=== PATIENT | male | born 1960 | race Caucasian/White ===

== ENCOUNTER → 2024-11-23 07:53 | Outpatient (REF) | payer OTHER, SELFPAY ==
[2024-11-23 12:41] LABS: ALT (SGPT) 31 U/L (0-50); AST (SGOT) 28 U/L (17-59); Albumin 4.9 g/dl (3.5-5.0); Alkaline Phosphatase 72 U/L (38-126); Blood Urea Nitrogen 13 mg/dl (9-20); Calcium 9.8 mg/dl (8.4-10.2); Carbon Dioxide 29 mmol/L (22-30); Chloride 103 mmol/L (98-107); Glucose 116 mg/dl (70-99); HDL Cholesterol 52 mg/dl; LDL Cholesterol, Calculated 108 mg/dl; Potassium 5.1 mmol/L (3.5-5.1); Sodium 142 mmol/L (135-145); Total Bilirubin 0.8 mg/dl (0.2-1.3); Total Cholesterol 197 mg/dl (50-199); Total Protein 7.8 g/dl (6.3-8.2); Triglyceride 188 mg/dl (10-149); Very Low Density Lipoprotein 37 mg/dl (0-30); eGFR > 60.00
[2024-11-23 12:42] LABS: % Basophils 0.8 % (0-2); % Eosinophils 3.1 % (0-6); % Immature Granulocytes 0.5 % (0-0.5); % Lymphocytes 20.8 % (20.5-51.1); % Monocytes 7.9 % (1.7-9.3); % Neutrophils 66.9 % (42.2-75.2); Absolute Basophils 0.1 10^3/uL (0-0.2); Absolute Eosinophils 0.2 10^3/uL (0-0.7); Absolute Lymphocytes 1.3 10^3/uL (1.2-3.4); Absolute Monocytes 0.5 10^3/uL (0.1-0.6); Absolute Neutrophils 4.1 10^3/uL (1.4-6.5); Hematocrit 45.2 % (39.0-52.0); Mean Corp Hgb Conc. 33.2 g/dL (33.0-37.0); Mean Corpuscular Hgb 29.2 pg (27.0-31.0); Mean Corpuscular Volume 87.9 fL (80.0-94.0); Mean Platelet Volume 8.7 fL (7.4-10.4); Nucleated Red Blood Cells % 0 % (-); Platelet Count 359 10^3/uL (130-400); Red Blood Cell Count 5.14 10^6/uL (4.70-6.10); Red Cell Dist. Width 13.1 % (11.5-14.5); White Blood Cell Count 6.1 10^3/uL (4.8-10.8)
[2024-11-23 13:13] LABS: PSA, Total - Screen 2.03 ng/ml (0.0-4.0); TSH Reflex To Free T4 3.08 uIU/ml (0.47-4.68)
== END ==
LOC: HWLAB 07:53
PROVIDERS: ATTENDING PHYSICIAN Nurse Practitioner Adult Health
DX: Z00.00 Encounter for general adult medical examination without abnormal findings (principal); Z12.5 Encounter for screening for malignant neoplasm of prostate
CPT/HCPCS: 36415; 80053; 80061; 84443; 85025; G0103

== ENCOUNTER 2025-06-11 06:27 | Day surgery (SDC) | payer OTHER, SELFPAY | END 2025-06-11 16:22 | disposition home or self-care (01) | LOC: GI 06:27 | PROVIDERS: ATTENDING PHYSICIAN Internal Medicine Gastroenterology; FAMILY PHYSICIAN Nurse Practitioner Adult Health | DX: Z12.11 Encounter for screening for malignant neoplasm of colon (principal); K57.30 Diverticulosis of large intestine without perforation or abscess without bleeding; D12.8 Benign neoplasm of rectum; D12.4 Benign neoplasm of descending colon; Z86.0100 Personal history of colon polyps, unspecified | CPT/HCPCS: 45385; 45380; 88305 ==

== ENCOUNTER 2025-07-13 20:05 | Emergency (ER) | payer OTHER, SELFPAY ==
[2025-07-13 20:10] VITALS: BP 157/102
[2025-07-13 21:54] VITALS: BP 134/83; BMI 27.2
[2025-07-13] MEDS: KEFLEX 500 MG PO (22:53)
--- NOTE | 2025-07-13 22:57 | ED.MUSCINJ ---
HPI-Injury
General
Chief Complaint: Fall
Source: patient and family
Exam Limitations: none
Time Seen by Provider: 07/13/25 21:26
Nursing documentation reviewed up to this point in time: agreed with
History of Present Illness-Injury
Is this injury a work related problem?: No
Is pt an associate of [facility]?: No
Initial Injury comments:
Patient to the emergency department for evaluation s/p fall in his driveway at home. Patient admits to drinking tonight. States he lost his footing and fell. It is unknown if he hit his head. He sustained a laceration to the palmar surface of
his right hand. Injury occurred just prior to arrival. Patient was brought to the emergency department by family for evaluation
Past History
Past History
ED Past Medical History: Negative IDDM or NIDDM
Review of Systems
Review of Systems
Allergies reviewed?: Yes
All Other Systems: ROS reviewed and negative except as documented in HPI and ROS
Constitutional: Reports no symptoms
EENT: Reports no symptoms
Respiratory: Reports no symptoms
Cardiac: Reports no symptoms
ABD/GI: Reports no symptoms
: Reports no symptoms
Musculoskeletal: Reports joint pain (Pain to right hand)
Skin: Reports other (Laceration to palmar surface of right hand)
Neurological: Reports no symptoms
Psychiatric: Reports no symptoms
Musculoskeletal Injury Exam
Musculoskeletal Injury Exam
Right Hand:
Pain with Movement?: Moderate
Tender to palpation?: Moderate
Soft tissue swelling?: Mild
External deformity and angulation?: None
Joint effusion?: None
Contusion?: Moderate
Hematoma-local bleeding into tissue?: None
Strain- Sprain- Tear (Connective tissue injury)?: Moderate
Crepitus with movement?: No
Joint instability?: No
Malalignment/deformity?: No
Range of motion: Full
Distal skin color and temperature: normal-warm & good color
Capillary Refill: normal
Normal distal neurovascular exam?: Yes
Peripheral Pulses: radial (right): 3+
Skin Exam
Laceration
Right Palmar Hand:
Length in cm: 3
Orientation: horizontal
Type of Laceration: simple
Any active bleeding?: low grade venous oozing
Distal skin color and temperature: normal-warm & good color
Normal distal neurovascular exam: Yes
Range of motion: full
Phy Exam
General Physical Exam
General Presentation: well appearing and no apparent distress
General age: appears stated age
General Skin: warm and dry
General Habitus: normal
General Mental: alert
Eye Exam
Eye Exam: PERRL, EOMI, conjunctiva normal and globe normal
Neurological Exam
Neurological Exam: alert, oriented x3, CN II-XII intact, no motor deficits, no sensory deficits and speech normal
Musculoskeletal Exam
Musculoskeletal Exam: full ROM and neuro vasc intact
Skin Exam
Skin Exam: normal color, warm/dry and no rash
Psychiatric Exam
Psychiatric Exam: normal mood/affect
Injury Course
Orders/Labs/Results
Orders:
Orders
07/13/25 20:15
CT Head W/o Iv Contrast Urgent
Comment:
Reason For Exam: fall, head strike
CR Hand - Right Min 3 Views Urgent
Comment:
Reason For Exam: deep laceration
07/13/25 22:48
Cephalexin Monohydrate [Keflex] 500 mg PO NOW STA
Procedures
Laceration Closure
Right Palmar Hand:
Status of Wound: dirty
Description of Wound Edges: sharp
Preparation: cleaned with soap & water, cleaned with saline and cleaned with Betadine
Anesthesia: 1% Lidocaine
Revision/Debridement: routine- no revision and irrigate-direct pressure
Wound exploration: extensive cleaning of contaminated wound, explored to base- no FB and no tendon involvement
Type of Closure: single layer closure
Skin Closure Material: 5-0 prolene
*Radiology
Radiology exam reviewed: radiology read reviewed
*Pulse Oximetry
SaO2: 98
Oxygen Mode of Delivery: Room air
Patient hypoxic: no
*Critical Care Note
Total Time (30-74mins, 75-104mins- exclusive of procedures): Not Applicable
Update Note
Update Note:
Patient to emergency department after falling in his driveway at home. He admits to drinking alcohol this evening. It is unknown whether he hit his head. CT of head was performed, no acute findings. He complains of pain and laceration to the
right hand. X-ray negative for fracture. Laceration anesthetized with lidocaine 1% and extensively cleansed. No evidence of tendon injury noted on exam. He has full range of motion to his hand. Equal strength bilaterally. Sensation is intact.
Extremity is neurovascularly intact. Sutures were placed as documented. He will be discharged home tonight and will follow-up with his family doctor. He was given instructions on signs and symptoms to return to the emergency department he is
agreeable to this plan.
ED Attending Note
-
Portions of this chart may have been created with voice recognition software.� Occasional wrong word or��sound alike� substitutions may have occurred due to the inherent limitations of voice recognition software.
Discharge Plan
Departure
Patient Disposition: Home (Routine Discharge)
Date of Disposition: 07/13/25
Time of Disposition: 22:48
Patient with high blood pressure during this ER visit?: No
Condition: Good
Covid-19: Not Applicable
Discharge Problem:
Head injury, Laceration of hand
Instructions: Head Injury in Adults (DC), Laceration Repair With Stitches (DC), Preventing falls in adults
Prescriptions:
New
cephalexin 500 mg capsule
500 mg PO BID 7 Days Qty: 14 0RF
No Action
multivitamin 1 EACH tablet
1 ea PO DAILY
cyanocobalamin (vitamin B-12) 1,000 MCG capsule
1,000 mcg PO DAILY
ondansetron HCl [Zofran] 4 mg Tablet
4 mg PO Q6H PRN (Reason: nausea)
pregabalin [Lyrica] 75 mg Capsule
75 mg PO BID
Referrals:
UNKNOWN - PT NOT,INTERVIEWE [Family Provider]
Activity Restrictions/Additional Instructions:
Sutures can be removed in 7 to 10 days by your family doctor
Interventions
Interventions:
*Risk Screen - Suicide Last Done: 07/13/25 20:10
*General Assessment Last Done: 07/13/25 20:10
*Neglect/Abuse Screening Last Done: 07/13/25 20:10
*ED COVID-19 Vaccine History Last Done: 07/13/25 20:10
*ED Influenza Vaccine History Last Done: 07/13/25 20:10
ED-Musculoskeletal Assessment Last Done: 07/13/25 21:54
ED- Neurological Assessment Last Done: 07/13/25 22:00
ED-Skin Assessment Last Done: 07/13/25 21:54
Discharge Date and Time
Print Language: COMORAN
== END 2025-07-13 23:11 | disposition home or self-care (01) ==
LOC: EMR 20:05
PROVIDERS: EMERGENCY PHYSICIAN Emergency Medicine; FAMILY PHYSICIAN Nurse Practitioner Adult Health
DX: S09.90XA Unspecified injury of head, initial encounter (principal); S61.411A Laceration without foreign body of right hand, initial encounter; W01.0XXA Fall on same level from slipping, tripping and stumbling without subsequent striking against object, initial encounter; Y92.008 Other place in unspecified non-institutional (private) residence as the place of occurrence of the external cause
CPT/HCPCS: 99284; 70450; 73130